=== PATIENT | male | born 1955 | race Asian ===

== ENCOUNTER 2017-04-13 15:30 | Emergency (ER) | payer BC ==
[~2017-04-13] VITALS: Ht 162.6 cm; Wt 81.6 kg
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
[2017-04-13] MEDS ORDERED: HYDROMORPHONE INJ 2 MG/ML DISP.SYRIN IM ONE (16:30)
[2017-04-13] MEDS ORDERED: ONDANSETRON HCL/PF 4 MG/2 ML VIAL IVP ONE (16:30)
[2017-04-13] MEDS ORDERED: ONDANSETRON HCL/PF 4 MG/2 ML VIAL ONE (16:40)
[2017-04-13] MEDS ORDERED: TDAP [DIPH/PERTUSSIS/TET] 0.5 ML VIAL IM ONE ×2 (16:41→17:00)
[2017-04-13] MEDS ORDERED: HYDROMORPHONE INJ 0.5 MG/0.5 ML SYRINGE ONE (16:41)
--- NOTE | 2017-04-13 16:47 | NUR ---
TDAP GIVEN IM L DELTOID PER HANANE JORDAN VERBAL ORDER. LOT [id number] EXP 12/17/18
[2017-04-13] MEDS ORDERED: HYDROCODONE/APAP 5/325MG 1 EACH TABLET ONE (17:10)
--- NOTE | 2017-04-13 17:15 | NUR ---
PT WAS GIVEN NORCO 5/325 PO PER HANANE WEARING APPAREL SHAKER ORDER.
--- NOTE | 2017-04-13 17:25 | NUR ---
BELA PROVIDED. PT D/C HOME W/ PRESCRIPTION AND XRAY COPY. ACI GIVEN AND ADVISED TO SEE ORTHO MARYANN. D/C IN STABLE CONDITION.
[2017-04-13 17:26] VITALS: BP 152/99
[2017-04-13] MEDS ORDERED: HYDROCODONE/APAP 5/325MG 1 EACH TABLET PO ONE (17:30)
== END 2017-04-13 17:30 | disposition home or self-care (01) ==
LOC: ER 15:32
DX: S42.291A Other displaced fracture of upper end of right humerus, initial encounter for closed fracture (principal); I10 Essential (primary) hypertension; W01.0XXA Fall on same level from slipping, tripping and stumbling without subsequent striking against object, initial encounter; Y93.01 Activity, walking, marching and hiking; Y92.89 Other specified places as the place of occurrence of the external cause; Y99.8 Other external cause status
CPT/HCPCS: 73030; 90471; 90715; 99284; A4606; A6402; J2405; Z7610